=== PATIENT | female | born 1930 | race American Indian/Alaskan Native ===

== ENCOUNTER 2018-09-27 18:27 | Inpatient (IN) | payer MEDICARE ==
[2018-09-27 19:46] LABS: Bilirubin,Urine NEG (Negative); Blood,Urine NEG (Negative); Color,Urine Straw (Yellow); Protein,Urine <15 mg/dL mg/dL (Negative); RBC,Urine < 1.0 /HPF (0.0-6.0); Urobilinogen,Urine < 2.0 mg/dL (<2.0)
[2018-09-27 19:50] LABS: Basophils # (Auto) 0.1 K/mm3 (0.0-0.1); Basophils % (Auto) 0.6 % (0.0-1.8); Hematocrit 42.3 % (30.3-42.9); Hemoglobin 13.7 gm/dl (10.1-14.3); Lymphocytes # (Auto) 0.8 K/mm3 (1.2-5.4); Lymphocytes % (Auto) 7.9 % (13.4-35.0); Mean Corpuscular HGB Conc 32 % (30-34); Mean Corpuscular Volume 91 fl (79-97); Monocytes # (Auto) 0.3 K/mm3 (0.0-0.8); Monocytes % (Auto) 3.3 % (0.0-7.3); Platelet Count 297 K/mm3 (140-440); Red Blood Count 4.65 M/mm3 (3.65-5.03); Red Cell Distribution Width 14.6 % (13.2-15.2)
[2018-09-27] MEDS ORDERED: NACL 0.9% 1000 ML 1,000 ML IV ONE (19:54)
[2018-09-27 20:00] LABS: INR 0.95 (0.87-1.13); Partial Thromboplastin Time 24.1 Sec. (24.2-36.6)
[2018-09-27 20:04] LABS: Calcium 10.3 mg/dL (8.4-10.2)
[2018-09-27 20:08] LABS: Alanine Aminotransferase 10 units/L (7-56); Albumin 4.2 g/dL (3.9-5)
[2018-09-27 20:25] LABS: Bilirubin,Direct < 0.2 mg/dL (0-0.2)
--- NOTE | 2018-09-27 20:51 | Cat Scan Report ---
PROCEDURE: CT head without contrast. TECHNIQUE: Computerized tomography of the head was performed without contrast material. CT DOSE LENGTH PRODUCT: 930.3 mGycm HISTORY: Altered mental status. COMPARISONS: None. FINDINGS: The ventricles are normal in size. There is minimal evidence of chronic ischemic white matter disease . There are no mass lesions. There is no intracranial hemorrhage. The calvarium appears intact. The m astoid air cells and paranasal sinuses are well aerated as far as visualized. IMPRESSION: Normal study of the brain for age. This document is electronically signed by Alex Gamboa MD., September 27 2018 08:49:32 PM ET
--- NOTE | 2018-09-27 21:19 | XRay Report ---
PROCEDURE: XR CHEST 1V AP TECHNIQUE: Chest radiograph single view. HISTORY: ams COMPARISONS: None . FINDINGS: Heart: Normal. Mediastinum/Vessels: Normal. Lungs/Pleural space: Normal. Bony thorax: No acute osseous abnormality. Life support devices: None. IMPRESSION: No acute cardiopulmonary abnormality. This document is electronically signed by Onesimo Escobedo MD., September 27 2018 09:16:49 PM ET
--- NOTE | 2018-09-27 21:27 | Emergency Department Report ---
ED Altered Mental Status HPI - General Chief Complaint: Altered Mental Status Stated Complaint: EYE PAIN,HIGH SUGAR Time Seen by Provider: 09/27/18 19:03 Source: EMS Mode of arrival: Stretcher Limitations: Altered Mental Status - History of Present Illness Initial Comments: 88-year-old female presents to ED with complaint of right eye pain. Family stat es patient has been altered, not acting like herself. Daughter states patient had an appointment with new primary care physician on yesterday and was okay at that time. Patient was given a prescription for tramadol for her chronic knee and hip pain. The patient has had confusion that has been waxing and waning. Patient was altered with the nurse, unable to give accurate date of , current year, or reason for being in the hospital. However, with me, the patient reported right eye pain x 3 days, denies vision changes, is inaccurate date of , and knows that this is the year 2019 and that she is in the hospital for evaluation of her eye. Patient denies chest pain, abdominal pain, shortness of breath, vomiting. Accu-Chek read HIGH with EMS. MD Complaint: confusion -: This morning Severity: moderate Consistency of Symptoms: waxing and waning Context: diabetes Associated Symptoms: headaches. denies: chest pain, nausea/vomiting - Related Data Allergies Allergy/AdvReac Type Severity Reaction Status Date / Time codeine Allergy Unknown Verified 09/27/18 20:55 ibuprofen [From Motrin] Allergy Unknown Verified 09/27/18 20:55 ED Review of Systems ROS: Stated complaint: EYE PAIN,HIGH SUGAR Other details as noted in HPI Comment: All other systems reviewed and negative Eyes: eye pain. 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 Absent: respiratory distress - Cardiovascular Cardiovascular Exam: Present: regular rate, normal rhythm - GI/Abdominal GI/Abdominal exam: Present: soft. Absent: distended, tenderness - Extremities Exam Extremities exam: Present: normal inspection - Neurological Exam Neurological exam: Present: alert, altered, CN II-XII intact. Absent: motor sensory deficit - Psychiatric Psychiatric exam: Present: normal affect, normal mood - Skin Skin exam: Present: warm, dry, intact, normal color ED Course Vital Signs 09/27/18 18:48 Temperature 97.3 F L Pulse Rate 86 Respiratory 16 Rate Blood Pressure 162/71 O2 Sat by Pulse 98 Oximetry - Lab Data Result diagrams: 09/27/18 19:38 09/27/18 21:19 Lab Results 09/27/18 09/27/18 09/27/18 Range/Units 19:06 19:38 19:38 WBC 9.9 (4.5-11.0) K/mm3 RBC 4.65 (3.65-5.03) M/mm3 Hgb 13.7 (10.1-14.3) gm/dl Hct 42.3 (30.3-42.9) % MCV 91 (79-97) fl MCH 29 (28-32) pg MCHC 32 (30-34) % RDW 14.6 (13.2-15.2) % Plt Count 297 (140-440) K/mm3 Lymph % (Auto) 7.9 L (13.4-35.0) % [place] % (Auto) 3.3 (0.0-7.3) % Eos % (Auto) 0.0 (0.0-4.3) % Baso % (Auto) 0.6 (0.0-1.8) % Lymph # 0.8 L (1.2-5.4) K/mm3 [place] # 0.3 (0.0-0.8) K/mm3 Eos # 0.0 (0.0-0.4) K/mm3 Baso # 0.1 (0.0-0.1) K/mm3 Seg Neutrophils % 88.2 H (40.0-70.0) % Seg Neutrophils # 8.7 H (1.8-7.7) K/mm3 PT 13.3 (12.2-14.9) Sec. INR 0.95 (0.87-1.13) APTT 24.1 L (24.2-36.6) Sec. VBG pH (7.320-7.420) Sodium (137-145) mmol/L Potassium (3.6-5.0) mmol/L Chloride (98-107) mmol/L Carbon Dioxide (22-30) mmol/L Anion Gap mmol/L BUN (7-17) mg/dL Creatinine (0.7-1.2) mg/dL Estimated GFR ml/min BUN/Creatinine Ratio % Glucose (65-100) mg/dL POC Glucose > 500 H (70-105) Ketones Quantitative (Negative) Calcium (8.4-10.2) mg/dL Phosphorus (2.5-4.5) mg/dL Magnesium (1.7-2.3) mg/dL Total Bilirubin (0.1-1.2) mg/dL Direct Bilirubin (0-0.2) mg/dL Indirect Bilirubin mg/dL AST (5-40) units/L ALT (7-56) units/L Alkaline Phosphatase (35-129) units/L Total Protein (6.3-8.2) g/dL Albumin (3.9-5) g/dL Albumin/Globulin Ratio % 09/27/18 09/27/18 09/27/18 Range/Units 19:38 19:38 20:27 WBC (4.5-11.0) K/mm3 RBC (3.65-5.03) M/mm3 Hgb (10.1-14.3) gm/dl Hct (30.3-42.9) % MCV (79-97) fl MCH (28-32) pg MCHC (30-34) % RDW (13.2-15.2) % Plt Count (140-440) K/mm3 Lymph % (Auto) (13.4-35.0) % [place] % (Auto) (0.0-7.3) % Eos % (Auto) (0.0-4.3) % Baso % (Auto) (0.0-1.8) % Lymph # (1.2-5.4) K/mm3 [place] # (0.0-0.8) K/mm3 Eos # (0.0-0.4) K/mm3 Baso # (0.0-0.1) K/mm3 Seg Neutrophils % (40.0-70.0) % Seg Neutrophils # (1.8-7.7) K/mm3 PT (12.2-14.9) Sec. INR (0.87-1.13) APTT (24.2-36.6) Sec. VBG pH (7.320-7.420) Sodium 139 (137-145) mmol/L Potassium 4.7 (3.6-5.0) mmol/L Chloride 96.2 L (98-107) mmol/L Carbon Dioxide 20 L (22-30) mmol/L Anion Gap 28 mmol/L BUN 43 H (7-17) mg/dL Creatinine 1.6 H (0.7-1.2) mg/dL Estimated GFR 37 ml/min BUN/Creatinine Ratio 27 % Glucose 742 H* (65-100) mg/dL POC Glucose (70-105) Ketones Quantitative Small (Negative) Calcium 10.3 H (8.4-10.2) mg/dL Phosphorus (2.5-4.5) mg/dL Magnesium (1.7-2.3) mg/dL Total Bilirubin 0.70 (0.1-1.2) mg/dL Direct Bilirubin < 0.2 (0-0.2) mg/dL Indirect Bilirubin 0.5 mg/dL AST 13 (5-40) units/L ALT 10 (7-56) units/L Alkaline Phosphatase 79 (35-129) units/L Total Protein 7.6 (6.3-8.2) g/dL Albumin 4.2 (3.9-5) g/dL Albumin/Globulin Ratio 1.2 % 09/27/18 09/27/18 09/27/18 Range/Units 20:27 21:19 21:19 WBC (4.5-11.0) K/mm3 RBC (3.65-5.03) M/mm3 Hgb (10.1-14.3) gm/dl Hct (30.3-42.9) % MCV (79-97) fl MCH (28-32) pg MCHC (30-34) % RDW (13.2-15.2) % Plt Count (140-440) K/mm3 Lymph % (Auto) (13.4-35.0) % [place] % (Auto) (0.0-7.3) % Eos % (Auto) (0.0-4.3) % Baso % (Auto) (0.0-1.8) % Lymph # (1.2-5.4) K/mm3 [place] # (0.0-0.8) K/mm3 Eos # (0.0-0.4) K/mm3 Baso # (0.0-0.1) K/mm3 Seg Neutrophils % (40.0-70.0) % Seg Neutrophils # (1.8-7.7) K/mm3 PT (12.2-14.9) Sec. INR (0.87-1.13) APTT (24.2-36.6) Sec. VBG pH 7.323 (7.320-7.420) Sodium 141 (137-145) mmol/L Potassium 4.9 (3.6-5.0) mmol/L Chloride 98.2 (98-107) mmol/L Carbon Dioxide 20 L (22-30) mmol/L Anion Gap 28 mmol/L BUN 43 H (7-17) mg/dL Creatinine 1.7 H (0.7-1.2) mg/dL Estimated GFR 34 ml/min BUN/Creatinine Ratio 25 % Glucose (65-100) mg/dL POC Glucose (70-105) Ketones Quantitative (Negative) Calcium 10.2 (8.4-10.2) mg/dL Phosphorus 5.20 H (2.5-4.5) mg/dL Magnesium 2.30 (1.7-2.3) mg/dL Total Bilirubin (0.1-1.2) mg/dL Direct Bilirubin (0-0.2) mg/dL Indirect Bilirubin mg/dL AST (5-40) units/L ALT (7-56) units/L Alkaline Phosphatase (35-129) units/L Total Protein (6.3-8.2) g/dL Albumin (3.9-5) g/dL Albumin/Globulin Ratio % - EKG Data -: EKG Interpreted by Nh EKG shows normal: sinus rhythm, axis, intervals, QRS complexes Rate: normal Interpretation: no acute changes, other (inferolateral changes present) - Radiology Data Radiology results: report reviewed, image reviewed - Medical Decision Making 88-year-old female presents to ED with altered mental status. Patient appears to be in DKA, with glucose in the 700s, elevated anion gap of 28, and mildly decreased CO2 of 20. Insulin drip initiated. IV fluid boluses given as well. Patient appears to be dehydrated, with acute renal failure, BUN of 43, creatinine of 1.6. CT head negative for any acute abnormalities. No focal neuro deficit on exam. Chest x-ray and urine are both negative for any sign of infection. WBCs normal. Admit hospitalist, Dr Sauceda, for further management. - Differential Diagnosis UTI, hemorrhagic CVA, intracranial mass, electrolyte abnormality, DKA Critical Care Time: Yes Critical care time in (mins) excluding proc time.: 35 Critical care attestation.: If time is entered above; I have spent that time in minutes in the direct care of this critically ill patient, excluding procedure time. Critical Care Time: 35 minutes ED Disposition Clinical Impression: Diabetic ketoacidosis, Altered mental status, Acute renal failure Disposition: OP ADMIT IP TO THIS HOSP Is pt being admited?: Yes Condition: Stable Time of Disposition: 21:24
[2018-09-27] MEDS: HumuLIN R 100 UNITS in NACL 0.9% 99 ML IV SCH ×2 (21:56→23:14)
[2018-09-27 21:57] LABS: Calcium 10.2 mg/dL (8.4-10.2)
[2018-09-27] MEDS ORDERED: D50W (25GM) Syringe IV PRN (22:18)
[2018-09-27] MEDS ORDERED: ZOFRAN IV PRN (22:21)
[2018-09-27] MEDS ORDERED: TYLENOL PO PRN (22:22)
[2018-09-27] MEDS ORDERED: HumuLIN R 100 UNITS in NACL 0.9% 99 ML IV SCH (23:00)
[2018-09-27] MEDS ORDERED: APRESOLINE IV PRN (23:12)
[2018-09-27] MEDS: NACL 0.9% 1000 ML 1,000 ML IV SCH (23:24)
[2018-09-27] MEDS ORDERED: NACL 0.9% 1000 ML 1,000 ML IV SCH (23:45)
[2018-09-28 00:27] LABS: Calcium 10.1 mg/dL (8.4-10.2)
[2018-09-28 01:12] LABS: Calcium 9.9 mg/dL (8.4-10.2)
[2018-09-28] MEDS ORDERED: D50W (25GM) Syringe IV PRN (03:19)
[2018-09-28 04:28] LABS: Calcium 9.4 mg/dL (8.4-10.2)
--- NOTE | 2018-09-28 05:40 | History and Physical Report ---
CHIEF COMPLAINT: Altered mental status. Other complaint include pain in the right eye and elevated blood sugar. HISTORY OF PRESENT ILLNESS: The patient is an 88-year-old female, who initially was complaining about pain in the right eye going on for about 3 days and the patient went to a new primary care doctor who put her tramadol for pain and then also the doctor noticed that the patient was confused yesterday on 09/27/2018. There was no history of fever or chills. No history of nausea or vomiting and no history of chest pain or shortness of breath or cough was reported and because of the change in mental status, the patient was brought to the Emergency Room and was noted to have a very high blood sugar level. There is no history of dysuria. PAST MEDICAL HISTORY: Pertinent for hypertension, diabetes mellitus, DVT and high cholesterol. Also, the patient has past history of diabetes mellitus that is controlled with diet. PAST SURGICAL HISTORY: Pertinent for . FAMILY HISTORY: Noncontributory. SOCIAL HISTORY: The patient lives with family, does not smoke, does not drink alcohol and does not use illicit drugs. MEDICATIONS: The patient's home medication not known at this time. ALLERGIES: THE PATIENT IS ALLERGIC TO CODEINE AND IBUPROFEN. REVIEW OF SYSTEMS: CONSTITUTIONAL: There is no fever, no chills, no diaphoresis. HEENT: There is no headache or sore throat. CARDIOVASCULAR SYSTEM: There is no chest pain or orthopnea. RESPIRATORY SYSTEM: There is no shortness of breath or cough. GASTROINTESTINAL SYSTEM: There is no nausea, no vomiting, no abdominal pain, diarrhea or constipation. NEUROLOGICAL SYSTEM: Change in mental status noted. No dizziness or numbness. MUSCULOSKELETAL SYSTEM: There is no joint pain or swelling. DERMATOLOGICAL SYSTEM: There is no skin rash or itching. GENITOURINARY SYSTEM: There is no dysuria, hematuria or flank pain. Rest of system review is normal. PHYSICAL EXAMINATION: GENERAL: At the time of exam, the patient was found to be lethargic, but easily arousable, and not in acute distress. VITAL SIGNS: Initial vital signs shows temperature of 97.3 degrees Fahrenheit, pulse of 86, respirations 18, blood pressure 162/71, O2 sat of 98% on room air. HEENT: Showed eyeballs to be a little sunken with pupils round, reactive to light and accommodating. Extraocular muscles are intact. NECK: Supple with no JVD or carotid bruit. CARDIOVASCULAR SYSTEM: Showed normal first and second heart sounds with no gallops or murmurs. RESPIRATORY SYSTEM: Show good air entry on both sides of the lungs with no abnormal breath sounds. GASTROINTESTINAL SYSTEM: Show abdomen to be full, soft, nontender with no organomegaly or rigidity. NEUROLOGIC: Shows no focal deficit. MUSCULOSKELETAL SYSTEM: Show no joint swelling or tenderness. DERMATOLOGICAL SYSTEM: Showing dryness of the skin with no rashes seen. GENITOURINARY SYSTEM: Show no costovertebral angle tenderness. PERTINENT LABORATORY AND IMAGING STUDIES: The patient has CT of the head without contrast done that shows normal study of the brain for age. The patient also had chest x-ray done that shows no acute cardiopulmonary lesion. Lab results, the patient's CBC showed normal white count, normal hemoglobin and normal hematocrit with CBC differential showing elevated segmented neutrophil count of 88.2%. The patient's coagulation studies were unremarkable. The patient's chemistry show normal sodium, normal potassium with low chloride of 96.2, elevated BUN of 43 with elevated creatinine of 1.6 and critically high blood glucose of 742. The patient's anion gap is 23 and rest of chemistry was unremarkable except for slight increase in calcium level of 10.3. The patient's urinalysis show straw clear colored urine with elevated urine ketones level and high urine glucose of greater than 500. Negative urine nitrite as well as negative urine leukocyte esterase and no bacteria and normal urine wbc's was seen. DIAGNOSES: 1. Diabetic ketoacidosis. 2. Altered mental status. PLAN OF CARE: 1. The patient will be admitted as inpatient to Critical Care Unit using DKA protocol. 2. The patient will be on IV normal saline running at about 150 mL an hour. Also, the patient will continue IV insulin drip per DKA protocol and the fluid will be changed from normal saline to D5 half normal saline with potassium replacement of 20 mEq in 1 liter and this will be done when blood sugar is less than 250 mg/dL. 3. The patient will remain n.p.o. and will have critical care consult with Dr. Anton because of ICU admission requiring insulin drip. 4. The patient will be on IV hydralazine 10 mg every 4 hours as needed for elevated blood pressure of 160/90 or more. 5. The patient will be on IV Zofran 4 mg every 8 hours as needed for nausea and vomiting and will be on Tylenol 650 mg by mouth every 4 hours for fever and headache. JOB# [id number] OCN/NTS
[2018-09-28] MEDS ORDERED: HumaLOG SUB-Q SCH (06:00)
[2018-09-28] MEDS: NACL 0.9% 1000 ML 1,000 ML IV SCH (06:59)
--- NOTE | 2018-09-28 09:09 | Progress Note ---
Assessment and Plan Assessment and plan: Per Ed Documentation 88-year-old female presents to ED with complaint of right eye pain. Family states patient has been altered, not acting like herself. Daughter states patient had an appointment with new primary care physician on yesterday and was okay at that time. Patient was given a prescription for tramadol for her chronic knee and hip pain. The patient has had confusion that has been waxing and waning. Patient was altered with the nurse, unable to give accurate date of , current year, or reason for being in the hospital. However, with me, the patient reported right eye pain x 3 days, denies vision changes, is inaccurate date of , and knows that this is the year 2019 and that she is in the hospital for evaluation of her eye. Patient denies chest pain, abdominal pain, shortness of breath, vomiting. Accu-Chek read HIGH with EMS. Patient was treated with insulin protocol and improved. Her right eye has improved. CT Head with out contrast:Normal study of the brain for age. CXR: No acute cardiopulmonary disease noted Hyperosomolar Non ketotic hyperglycemic state Uncontrolled DM Acute Encephalopathy ?underlying Dementia exacerbated with Delirium due to High blood sugar Right Eye pain DVT per hx HTN Hyperlipidemia Hypenatremia Hypercalcemia- Resolved Plan Continue supportive care Transfer to [facility] unit Continue to monitor renal function. Unknown baseline at this time. Nephrology consult pending Adjust insulin Obtain and restart home medication Will need outpatient dementia work up. Discussed with family need for [facility] [employer] Eval Outpatient Check hemoglobin A1c Anticipated discharge in a.m. if patient continues to improve History Interval history: Patient seen and examined today, mental status has improved. Per family patient was not on any diabetic medication and was being managed by diet. No new complaints. Hospitalist Physical - Physical exam Narrative exam: VITAL SIGNS: Reviewed. GENERAL: The patient appeared well nourished and normally developed, Vital signs as documented. HEAD: No signs of head trauma. EYES: Pupils are equal. Extraocular motions intact. EARS: Hearing grossly intact. MOUTH: Oropharynx is normal. Noted missing dentition NECK: No adenopathy, no JVD. CHEST: Chest with clear breath sounds bilaterally. No wheezes, rales, or rhonchi. CARDIAC: Regular rate and rhythm. S1 and S2, without murmurs, gallops, or rubs. VASCULAR: No Edema. Peripheral pulses normal and equal in all extremities. ABDOMEN: Soft, non tender and non distended. No rebound or guarding, and no masses palpated. Bowel Sounds normal. MUSCULOSKELETAL: Good range of motion of all major joints. Extremities without clubbing, cyanosis or edema. NEUROLOGIC EXAM: Alert and oriented x 3 No focal sensory or strength deficits. Speech normal. Follows commands. PSYCHIATRIC: Mood normal. SKIN: No rash or lesions. - Constitutional Vitals: Temp Pulse Resp BP Pulse Ox 98.9 F 89 20 165/77 93 09/28/18 08:00 09/28/18 00:45 09/28/18 00:45 09/28/18 00:45 09/28/18 00:45 Results - Labs CBC & Chem 7: 09/27/18 19:38 09/28/18 04:01 Labs: Laboratory Last Values WBC 9.9 K/mm3 (4.5-11.0) 09/27/18 19:38 RBC 4.65 M/mm3 (3.65-5.03) 09/27/18 19:38 Hgb 13.7 gm/dl (10.1-14.3) 09/27/18 19:38 Hct 42.3 % (30.3-42.9) 09/27/18 19:38 MCV 91 fl (79-97) 09/27/18 19:38 MCH 29 pg (28-32) 09/27/18 19:38 MCHC 32 % (30-34) 09/27/18 19:38 RDW 14.6 % (13.2-15.2) 09/27/18 19:38 Plt Count 297 K/mm3 (140-440) 09/27/18 19:38 Lymph % (Auto) 7.9 % (13.4-35.0) L 09/27/18 19:38 [place] % (Auto) 3.3 % (0.0-7.3) 09/27/18 19:38 Eos % (Auto) 0.0 % (0.0-4.3) 09/27/18 19:38 Baso % (Auto) 0.6 % (0.0-1.8) 09/27/18 19:38 Lymph # 0.8 K/mm3 (1.2-5.4) L 09/27/18 19:38 [place] # 0.3 K/mm3 (0.0-0.8) 09/27/18 19:38 Eos # 0.0 K/mm3 (0.0-0.4) 09/27/18 19:38 Baso # 0.1 K/mm3 (0.0-0.1) 09/27/18 19:38 Seg Neutrophils % 88.2 % (40.0-70.0) H 09/27/18 19:38 Seg Neutrophils # 8.7 K/mm3 (1.8-7.7) H 09/27/18 19:38 PT 13.3 Sec. (12.2-14.9) 09/27/18 19:38 INR 0.95 (0.87-1.13) 09/27/18 19:38 APTT 24.1 Sec. (24.2-36.6) L 09/27/18 19:38 VBG pH 7.323 (7.320-7.420) 09/27/18 20:27 Sodium 149 mmol/L (137-145) H 09/28/18 04:01 Potassium 3.8 mmol/L (3.6-5.0) 09/28/18 04:01 Chloride 112.0 mmol/L (98-107) H 09/28/18 04:01 Carbon Dioxide 23 mmol/L (22-30) 09/28/18 04:01 Anion Gap 18 mmol/L 09/28/18 04:01 BUN 41 mg/dL (7-17) H 09/28/18 04:01 Creatinine 1.5 mg/dL (0.7-1.2) H 09/28/18 04:01 Estimated GFR 40 ml/min 09/28/18 04:01 BUN/Creatinine Ratio 27 % 09/28/18 04:01 Glucose 179 mg/dL (65-100) H 09/28/18 04:01 POC Glucose 213 (70-105) H 09/28/18 05:22 Ketones Quantitative Small (Negative) 09/27/18 20:27 Calcium 9.4 mg/dL (8.4-10.2) 09/28/18 04:01 Phosphorus 4.60 mg/dL (2.5-4.5) H 09/27/18 22:59 Magnesium 2.30 mg/dL (1.7-2.3) 09/27/18 22:59 Total Bilirubin 0.70 mg/dL (0.1-1.2) 09/27/18 19:38 Direct Bilirubin < 0.2 mg/dL (0-0.2) 09/27/18 19:38 Indirect Bilirubin 0.5 mg/dL 09/27/18 19:38 AST 13 units/L (5-40) 09/27/18 19:38 ALT 10 units/L (7-56) 09/27/18 19:38 Alkaline Phosphatase 79 units/L (35-129) 09/27/18 19:38 Total Protein 7.6 g/dL (6.3-8.2) 09/27/18 19:38 Albumin 4.2 g/dL (3.9-5) 09/27/18 19:38 Albumin/Globulin Ratio 1.2 % 09/27/18 19:38 Urine Color Straw (Yellow) 09/27/18 Unknown Urine Turbidity Clear (Clear) 09/27/18 Unknown Urine pH 5.0 (5.0-7.0) 09/27/18 Unknown Ur Specific [place] 1.026 (1.003-1.030) 09/27/18 Unknown Urine Protein <15 mg/dl mg/dL (Negative) 09/27/18 Unknown Urine Glucose (UA) >=500 mg/dL (Negative) 09/27/18 Unknown Urine Ketones 20 mg/dL (Negative) 09/27/18 Unknown Urine Blood Neg (Negative) 09/27/18 Unknown Urine Nitrite Neg (Negative) 09/27/18 Unknown Urine Bilirubin Neg (Negative) 09/27/18 Unknown Urine Urobilinogen < 2.0 mg/dL (<2.0) 09/27/18 Unknown Ur Leukocyte Esterase Neg (Negative) 09/27/18 Unknown Urine WBC (Auto) 1.0 /HPF (0.0-6.0) 09/27/18 Unknown Urine RBC (Auto) < 1.0 /HPF (0.0-6.0) 09/27/18 Unknown Active Medications - Current Medications Current Medications: Generic Name Dose Route Start Last Admin Trade Name Freq PRN Reason Stop Dose Admin Acetaminophen 650 mg 09/27/18 22:22 Tylenol PO Q4H PRN Fever >101 Dextrose 50 ml 09/28/18 03:19 D50w (25gm) Syringe IV PRN PRN Hypoglycemia Hydralazine HCl 10 mg 09/27/18 23:12 Apresoline IV Q4HR PRN Hypertension Sodium Chloride 1,000 mls @ 125 mls/hr 09/27/18 23:45 Nacl 0.9% 1000 Ml IV DIRECT MONIKA Insulin Human Lispro 0 unit 09/28/18 06:00 09/28/18 05:41 Humalog SUB-Q 3 unit Q4HR MONIKA Administration Protocol Ondansetron HCl 4 mg 09/27/18 22:21 Zofran IV Q8H PRN Nausea And Vomiting
[2018-09-28] MEDS: HumaLOG SUB-Q SCH ×3 (10:47→22:41)
[2018-09-28] MEDS: LOVENOX SUB-Q SCH (10:56)
[2018-09-28] MEDS ORDERED: LOVENOX SUB-Q SCH (11:00)
--- NOTE | 2018-09-28 11:19 | Consultation ---
History of Present Illness Consult date: 09/28/18 Requesting physician: JAREN BURKETT Reason for consult: other (Acute metabolic encephaloapthy, Hyperglycemic hyperosmolar state) History of present illness: 88-year-old female presents to ED with complaint of right eye pain. Family states patient has been altered, not acting like herself. Daughter states patient had an appointment with new primary care physician on yesterday and was okay at that time. Patient was given a prescription for tramadol for her chronic knee and hip pain. The patient has had confusion that has been waxing and waning. Patient was altered with the nurse, unable to give accurate date of , current year, or reason for being in the hospital. However, with me, the patient reported right eye pain x 3 days, denies vision changes, is inaccurate date of , and knows that this is the year 2019 and that she is in the hospital for evaluation of her eye. Patient denies chest pain, abdominal pain, shortness of breath, vomiting. Accu-Chek read HIGH with EMS. She was admitted to the ICU for management of hyperglycemic-hyperosmolar state. I have been consulted for critical care management. She was on an insulin infusion Patient was seen and examined. Vitals, labs, medications, chart and imaging reviewed. Her daughter is at the bedside. She denies any chest pain, no shortness of breath. "I feel good." ROS: Stated complaint: EYE PAIN,HIGH SUGAR Other details as noted in HPI Comment: All other systems reviewed and negative Eyes: eye pain. denies: vision change Respiratory: denies: shortness of breath Cardiovascular: denies: chest pain Gastrointestinal: denies: abdominal pain, nausea, vomiting Neurological: headache - Past Medical History Previous Medical History?: Yes Hx Hypertension: Yes Hx Diabetes: Yes (Diet controlled) Additional medical history: DVT takes blood thinners - Surgical History Past Surgical History?: Yes Additional Surgical History: C section - Social History Smoking Status: Never smoked Medications and Allergies Allergies Allergy/AdvReac Type Severity Reaction Status Date / Time codeine Allergy Unknown Verified 09/27/18 20:55 ibuprofen [From Motrin] Allergy Unknown Verified 09/27/18 20:55 Home Medications Medication Instructions Recorded Confirmed Last Taken Type Amlodipine Besylate 2.5 mg PO DAILY 09/28/18 09/28/18 09/27/18 History Atorvastatin Calcium 40 mg PO DAILY 09/28/18 09/28/18 09/27/18 History Famotidine 20 mg PO HS 09/28/18 09/28/18 09/26/18 History Hydralazine HCl 50 mg PO BID 09/28/18 09/28/18 09/27/18 History Hydrochlorothiazide 12.5 mg PO DAILY 09/28/18 09/28/18 09/27/18 History Inderal 80 mg PO DAILY 09/28/18 09/28/18 09/27/18 History Losartan 25 mg PO DAILY 09/28/18 09/28/18 09/27/18 History traMADol 50 mg PO BID PRN 09/28/18 09/28/18 09/27/18 History Active Meds: Active Medications Acetaminophen (Tylenol) 650 mg PO Q4H PRN PRN Reason: Fever >101 Dextrose (D50w (25gm) Syringe) 50 ml IV PRN PRN PRN Reason: Hypoglycemia Enoxaparin Sodium (Lovenox) 30 mg SUB-Q QDAY ON LICENSE OF [facility] Last Admin: 09/28/18 10:56 Dose: 30 mg Documented by: Hydralazine HCl (Apresoline) 10 mg IV Q4HR PRN PRN Reason: Hypertension Insulin Glargine (Lantus) 5 units SUB-Q QDDIAB ON LICENSE OF [facility] Insulin Human Lispro (Humalog) 0 unit SUB-Q [facility] ON LICENSE OF [facility]; Protocol Last Admin: 09/28/18 10:47 Dose: 6 unit Documented by: Ondansetron HCl (Zofran) 4 mg IV Q8H PRN PRN Reason: Nausea And Vomiting Physical Examination Vital signs: Vital Signs Temp Pulse Resp BP Pulse Ox 97.3 F L 86 16 162/71 98 09/27/18 18:48 09/27/18 18:48 09/27/18 18:48 09/27/18 18:48 09/27/18 18:48 General appearance: no acute distress, alert Eyes: non-icteric ENT: oropharynx moist, other (edentulous) Neck: supple, no lymphadenopathy, no JVD Effort: normal Ascultation: Bilateral: clear Cardiovascular: regular rate and rhythm, other (S1,S2) Gastrointestinal: normoactive bowel sounds, soft, non-tender, non-distended Integumentary: normal Extremities: no cyanosis, no edema, pulses normal, no ischemia or petechiae Musculoskeletal: no deformities normal mental status, non-focal exam, pupils equal and round, motor strength normal and mood appropriate, affect normal Results - Laboratory Findings CBC and BMP: 09/27/18 19:38 09/28/18 04:01 PT/INR, D-dimer PT 13.3 Sec. (12.2-14.9) 09/27/18 19:38 INR 0.95 (0.87-1.13) 09/27/18 19:38 Abnormal lab findings: Abnormal Labs 09/27/18 09/27/18 09/27/18 19:06 19:38 19:38 Lymph % (Auto) 7.9 L Lymph # 0.8 L Seg Neutrophils % 88.2 H Seg Neutrophils # 8.7 H APTT 24.1 L Sodium Chloride Carbon Dioxide BUN Creatinine Glucose POC Glucose > 500 H Calcium Phosphorus 09/27/18 09/27/18 09/27/18 19:38 21:19 21:19 Lymph % (Auto) Lymph # Seg Neutrophils % Seg Neutrophils # APTT Sodium Chloride 96.2 L Carbon Dioxide 20 L 20 L BUN 43 H 43 H Creatinine 1.6 H 1.7 H Glucose 742 H* 694 H* POC Glucose Calcium 10.3 H Phosphorus 5.20 H 09/27/18 09/27/18 09/27/18 21:51 22:59 22:59 Lymph % (Auto) Lymph # Seg Neutrophils % Seg Neutrophils # APTT Sodium Chloride Carbon Dioxide 16 L BUN 42 H Creatinine 1.6 H Glucose 666 H* POC Glucose > 500 H Calcium Phosphorus 4.60 H 09/28/18 09/28/18 09/28/18 00:01 00:35 01:18 Lymph % (Auto) Lymph # Seg Neutrophils % Seg Neutrophils # APTT Sodium 146 H Chloride Carbon Dioxide 20 L BUN 41 H Creatinine 1.8 H Glucose 470 H POC Glucose > 500 H 357 H Calcium Phosphorus 09/28/18 09/28/18 09/28/18 02:11 02:20 03:07 Lymph % (Auto) Lymph # Seg Neutrophils % Seg Neutrophils # APTT Sodium Chloride Carbon Dioxide BUN Creatinine Glucose POC Glucose 365 H 298 H 202 H Calcium Phosphorus 09/28/18 09/28/18 09/28/18 04:01 05:22 10:34 Lymph % (Auto) Lymph # Seg Neutrophils % Seg Neutrophils # APTT Sodium 149 H Chloride 112.0 H Carbon Dioxide BUN 41 H Creatinine 1.5 H Glucose 179 H POC Glucose 213 H 286 H Calcium Phosphorus - Diagnostic Findings Chest x-ray: image reviewed Assessment and Plan Hyperosomolar hyperglycemic state Uncontrolled DM Acute Encephalopathy (metabolic) Right Eye pain, resolved DVT per hx HTN Hyperlipidemia Hypernatremia Hypercalcemia- Resolved Plan -Start low dose long acting insulin -Basal bolus insulin therapy -Resume chronic home medications -Monitor renal function, avoid nephrotoxics, adjust all medications for creatinine clearance -PT/OT to evaluate and treat -Falls precautions -Continue supportive care -OK to transfer to [facility] unit Discussed in ICU-IDT rounds Updated family at the bedside
[2018-09-28] MEDS: LANTUS SUB-Q SCH (11:59)
[2018-09-28] MEDS: NACL 0.45% 1000 ML 1,000 ML IV SCH (13:42)
--- NOTE | 2018-09-28 15:00 | Consultation ---
History of Present Illness - Reason for Consult acute renal failure - History of Present Illness The patient is an 88 YO female with history significant for DM type 2, HTN, CKD and HLD who presented to [facility] ED for evaluation of AMS. Julioragini is poor historian and the family members at the bedside was not able a good history. Per family patient has been altered, not acting like herself. The patient has had confusion that has been waxing and waning. Patient denies chest pain, N,V, D, abdominal pain, shortness of breath, fever or chills. Initial assessment showed blood sugar 742, creatinine 1.6 and positive ketones in the urine. Patient was admitted for treatment of DKA. Nephrology was consulted for further evaluation. Past History Past Medical History: diabetes, hypertension, hyperlipidemia, renal failure Medications and Allergies Allergies Allergy/AdvReac Type Severity Reaction Status Date / Time codeine Allergy Unknown Verified 09/27/18 20:55 ibuprofen [From Motrin] Allergy Unknown Verified 09/27/18 20:55 Home Medications Medication Instructions Recorded Confirmed Last Taken Type Amlodipine Besylate 2.5 mg PO DAILY 09/28/18 09/28/18 09/27/18 History Atorvastatin Calcium 40 mg PO DAILY 09/28/18 09/28/18 09/27/18 History Famotidine 20 mg PO HS 09/28/18 09/28/18 09/26/18 History Hydralazine HCl 50 mg PO BID 09/28/18 09/28/18 09/27/18 History Hydrochlorothiazide 12.5 mg PO DAILY 09/28/18 09/28/18 09/27/18 History Inderal 80 mg PO DAILY 09/28/18 09/28/18 09/27/18 History Losartan 25 mg PO DAILY 09/28/18 09/28/18 09/27/18 History traMADol 50 mg PO BID PRN 09/28/18 09/28/18 09/27/18 History Active Meds: Active Medications Acetaminophen (Tylenol) 650 mg PO Q4H PRN PRN Reason: Fever >101 Dextrose (D50w (25gm) Syringe) 50 ml IV PRN PRN PRN Reason: Hypoglycemia Enoxaparin Sodium (Lovenox) 30 mg SUB-Q QDAY MONIKA Last Admin: 09/28/18 10:56 Dose: 30 mg Documented by: Hydralazine HCl (Apresoline) 10 mg IV Q4HR PRN PRN Reason: Hypertension Sodium Chloride (Nacl 0.45% 1000 Ml) 1,000 mls @ 75 mls/hr IV DIRECT FOR[facility]LY [facility], [facility]1983 Last Admin: 09/28/18 13:42 Dose: 75 mls/hr Documented by: Insulin Glargine (Lantus) 5 units SUB-Q QDDIAB [facility] Last Admin: 09/28/18 11:59 Dose: 5 units Documented by: Insulin Human Lispro (Humalog) 0 unit SUB-Q ACHS FORMERLY [facility], [facility]; Protocol Last Admin: 09/28/18 10:47 Dose: 6 unit Documented by: Ondansetron HCl (Zofran) 4 mg IV Q8H PRN PRN Reason: Nausea And Vomiting Review of Systems ROS unobtainable: due to mental status (Please see HPI.) Exam - Vital Signs Vital signs: Vital Signs Temp Pulse Resp BP Pulse Ox 97.3 F L 86 16 162/71 98 09/27/18 18:48 09/27/18 18:48 09/27/18 18:48 09/27/18 18:48 09/27/18 18:48 - General Appearance General appearance: well-developed, well-nourished, appears stated age, other (not in distress) EENT: ATNC, PERRL, mucous membranes dry Neck: Present: neck supple, trachea midline Respiratory: Clear to Ascultation Heart: regular, S1S2, no murmurs Gastrointestinal: Present: normoactive bowel sounds. Absent: tenderness, distended Integumentary: no rash, warm and dry Neurologic: no focal deficit, no asterixis, other (Oriented to self, place and family members) Musculoskeletal: Present: other (no edema) Psychiatric: cooperative Results - Lab Results 09/27/18 19:38 09/28/18 04:01 Most recent lab results Calcium 9.4 mg/dL (8.4-10.2) 09/28/18 04:01 Phosphorus 4.60 mg/dL (2.5-4.5) H 09/27/18 22:59 Magnesium 2.30 mg/dL (1.7-2.3) 09/27/18 22:59 - Image Kidney/bladder ultrasound: pending Assessment and Plan 1. Acute kidney injury: Likely vasomotor TANJA superimposed on CKD in the setting of DKA and volume depletion. Creatinine level is fairly stable. Baseline CKD. Urine studies and Renal US. Continue IV fluids. Montior renal function. Avoid nephrotoxic agents. Meds dosage based on GFR. 2. FEN: Volume depletion, continue IV fluids. Hypernatremia, change IV fluids to 1/2 NS. Monitor lytes. 3. DKA: Improving. 4. HTN.
[2018-09-28] MEDS ORDERED: NON-FORMULARY (Tramadol 50 MG) PO PRN (15:18)
[2018-09-28] MEDS ORDERED: ULTRAM PO PRN (17:19)
[2018-09-28 20:35] LABS: Creatinine,Urine 115.3 mg/dL (0.1-20.0)
[2018-09-28] MEDS ORDERED: HYDRALAZINE HCL 50 MG PO SCH (22:00)
[2018-09-28] MEDS ORDERED: PEPCID PO SCH (22:00)
[2018-09-28] MEDS ORDERED: NON-FORMULARY (Famotidine 20 MG) PO SCH (22:00)
[2018-09-28] MEDS: APRESOLINE PO SCH (22:37)
[2018-09-29] MEDS: LANTUS SUB-Q SCH (07:27)
[2018-09-29] MEDS: HumaLOG SUB-Q SCH ×4 (07:29→11:43)
[2018-09-29] MEDS: NACL 0.45% 1000 ML 1,000 ML IV SCH (07:32)
[2018-09-29 08:07] LABS: Hematocrit 33.5 % (30.3-42.9); Mean Corpuscular HGB Conc 33 % (30-34); Mean Corpuscular Volume 90 fl (79-97); Platelet Count 227 K/mm3 (140-440); Red Blood Count 3.72 M/mm3 (3.65-5.03); Red Cell Distribution Width 14.2 % (13.2-15.2)
[2018-09-29 08:11] VITALS: BP 138/47
[2018-09-29 08:40] LABS: Albumin 2.9 g/dL (3.9-5)
[2018-09-29] MEDS: APRESOLINE PO SCH (09:15)
[2018-09-29] MEDS: LOVENOX SUB-Q SCH (09:20)
--- NOTE | 2018-09-29 09:31 | Progress Note ---
Assessment and Plan 1. Acute kidney injury: Likely vasomotor TANJA superimposed on CKD in the setting of DKA and volume depletion. Renal US results pending. Renal function is better. Montior renal function. Avoid nephrotoxic agents. Meds dosage based on GFR. 2. FEN: Volume depletion, improved. Hypernatremia, improved. Monitor lytes. 3. DKA: Improved. 4. HTN. F/u with me in 2 weeks. Also d/w her daughter at the bedside. Subjective Date of service: 09/29/18 Interval history: Patient is feeling better. Objective - Vital Signs Vital signs: Vital Signs - 12hr 09/28/18 09/28/18 09/29/18 22:00 22:37 03:16 Temperature 98.3 F Pulse Rate 92 H 92 H 79 Respiratory 18 Rate Respiratory 18 Rate [Left Thigh] Blood Pressure 170/70 115/53 O2 Sat by Pulse 97 Oximetry 09/29/18 07:26 Temperature 98.0 F Pulse Rate 81 Respiratory 20 Rate Respiratory Rate [Left Thigh] Blood Pressure 138/47 O2 Sat by Pulse 97 Oximetry - General Appearance General appearance: well-developed, well-nourished, appears stated age, other (not in distress) EENT: ATNC, PERRL, mucous membranes moist, hearing intact, vision intact Neck: supple Respiratory: Present: Clear to Ascultation Cardiology: regular, S1S2, no murmurs Gastrointestinal: normoactive bowel sounds, no tenderness, no distended Integumentary: no rash, warm and dry Neurologic: no focal deficit, no asterixis, alert and oriented x3 Musculoskeletal: other (no edema) Psychiatric: cooperative - Lab 09/29/18 07:47 09/29/18 07:47 Most recent lab results Calcium 8.0 mg/dL (8.4-10.2) L 09/29/18 07:47 Phosphorus 4.60 mg/dL (2.5-4.5) H 09/27/18 22:59 Magnesium 2.30 mg/dL (1.7-2.3) 09/27/18 22:59 Urine Creatinine 115.3 mg/dL (0.1-20.0) H 09/28/18 20:05 Urine Sodium 51 mmol/L 09/28/18 20:05 Medications & Allergies - Medications Allergies/Adverse Reactions: Allergies codeine Allergy (Verified 09/27/18 20:55) Unknown ibuprofen [From Motrin] Allergy (Verified 09/27/18 20:55) Unknown Home Medications: Home Medications Medication Instructions Recorded Confirmed Last Taken Type Amlodipine Besylate 2.5 mg PO DAILY 09/28/18 09/28/18 09/27/18 History Atorvastatin Calcium 40 mg PO DAILY 09/28/18 09/28/18 09/27/18 History Famotidine 20 mg PO HS 09/28/18 09/28/18 09/26/18 History Hydralazine HCl 50 mg PO BID 09/28/18 09/28/18 09/27/18 History Hydrochlorothiazide 12.5 mg PO DAILY 09/28/18 09/28/18 09/27/18 History Inderal 80 mg PO DAILY 09/28/18 09/28/18 09/27/18 History Losartan 25 mg PO DAILY 09/28/18 09/28/18 09/27/18 History traMADol 50 mg PO BID PRN 09/28/18 09/28/18 09/27/18 History Insulin Glargine,Hum.rec.anlog 100 unit SQ QHS #20 vial 09/29/18 Unknown Rx [Lantus] Insulin Lispro [HumaLOG VIAL] 0 units SQ AC #1 vial 09/29/18 Unknown Rx Active Medications: Generic Name Dose Route Start Last Admin Trade Name Freq PRN Reason Stop Dose Admin Acetaminophen 650 mg 09/27/18 22:22 Tylenol PO Q4H PRN Fever >101 Amlodipine Besylate 2.5 mg 09/29/18 10:00 09/29/18 09:19 Norvasc PO 2.5 mg QDAY MONIKA Administration Atorvastatin Calcium 40 mg 09/29/18 10:00 09/29/18 09:19 Lipitor PO 40 mg QDAY MONIKA Administration Dextrose 50 ml 09/28/18 03:19 D50w (25gm) Syringe IV PRN PRN Hypoglycemia Enoxaparin Sodium 30 mg 09/28/18 11:00 09/29/18 09:20 Lovenox SUB-Q 30 mg QDAY MONIKA Administration Famotidine 20 mg 09/28/18 22:00 09/28/18 22:38 Pepcid PO 20 mg QHS MONIKA Administration Hydralazine HCl 10 mg 09/27/18 23:12 Apresoline IV Q4HR PRN Hypertension Hydralazine HCl 50 mg 09/28/18 22:00 09/29/18 09:15 Apresoline PO Not Given BID MONIKA Hydrochlorothiazide 12.5 mg 09/29/18 10:00 09/29/18 09:18 Hctz PO 12.5 mg QDAY MONIKA Administration Sodium Chloride 1,000 mls @ 75 mls/hr 09/28/18 13:00 09/29/18 07:32 Nacl 0.45% 1000 Ml IV 75 mls/hr DIRECT MONIKA Administration Insulin Human Isoph/Insulin Regular 12 unit 09/29/18 10:00 09/29/18 09:21 Humulin 70/30 SUB-Q 09/29/18 10:01 12 unit ONCE ONE Administration Insulin Human Isoph/Insulin Regular 20 unit 09/29/18 17:00 Humulin 70/30 SUB-Q BIDDIAB MONIKA Insulin Human Lispro 0 unit 09/28/18 11:30 09/29/18 07:29 Humalog SUB-Q 8 unit ACHS MONIKA Administration Protocol Losartan Potassium 25 mg 09/29/18 10:00 09/29/18 09:19 Cozaar PO 25 mg QDAY MONIKA Administration Ondansetron HCl 4 mg 09/27/18 22:21 Zofran IV Q8H PRN Nausea And Vomiting Propranolol HCl 80 mg 09/29/18 10:00 09/29/18 09:20 Inderal La PO 80 mg QDAY MONIKA Administration Tramadol HCl 50 mg 09/28/18 17:19 Ultram PO BID PRN Pain, Moderate (4-6)
--- NOTE | 2018-09-29 09:49 | Discharge Summary ---
Providers - Providers Date of Admission: 09/27/18 21:32 Attending physician: JAREN BURKETT MD 09/27/18 22:35 Consult to Physician [CONS] Routine Comment: Consulting Provider: DOREEN FRANKS Physician Instructions: Reason For Exam: ICU ADMISSION NEEDING INSULIN DRIP 09/28/18 03:28 Consult to Dietitian/Nutrition [CONS] Routine Physician Instructions: Reason For Exam: Reason for Consult: Diet education 09/28/18 05:51 Consult to Physician [CONS] Routine Comment: Consulting Provider: DEBBIE DOHERTY Physician Instructions: Reason For Exam: TANJA 09/28/18 09:30 Occupational Therapy Evaluate and Treat [CONS] Routine Comment: Reason For Exam: debility Physical Therapy Evaluation and Treat [CONS] Routine Comment: Reason For Exam: debility Primary care physician: REEMA BOUCHER Hospitalization Reason for admission: ams Condition: Stable Hospital course: 88-year-old female presents to ED with complaint of right eye pain. Family states patient has been altered, not acting like herself. Daughter states patient had an appointment with new primary care physician on yesterday and was okay at that time. Patient was given a prescription for tramadol for her chronic knee and hip pain. The patient has had confusion that has been waxing and waning. Patient was altered with the nurse, unable to give accurate date of , current year, or reason for being in the hospital. However, with me, the patient reported right eye pain x 3 days, denies vision changes, is inaccurate date of , and knows that this is the year 2019 and that she is in the hospital for evaluation of her eye. Patient denies chest pain, abdominal pain, shortness of breath, vomiting. Accu-Chek read HIGH with EMS. Patient was treated with insulin protocol and improved. Her right eye has improved. A1c Returned greater than 12. Patient and family were educated on DM and management with lantus and to keep a diary of the blood sugar. the patient is much improved this am and ready for discharge. Renal function improved CT Head with out contrast:Normal study of the brain for age. CXR: No acute cardiopulmonary disease noted Hyperosomolar Non ketotic hyperglycemic state Uncontrolled DM Acute Encephalopathy secondary to uncontrolled DM Right Eye pain DVT per hx HTN Hyperlipidemia Hypenatremia Hypercalcemia- Resolved Disposition: TO HOME OR SELFCARE Time spent for discharge: 35 mins Core Measure Documentation - Palliative Care Palliative Care/ Comfort Measures: Not Applicable - Core Measures Any of the following diagnoses?: none Exam - Physical Exam Narrative exam: VITAL SIGNS: Reviewed. GENERAL: The patient appeared well nourished and normally developed, Vital signs as documented. HEAD: No signs of head trauma. EYES: Pupils are equal. Extraocular motions intact. EARS: Hearing grossly intact. MOUTH: Oropharynx is normal. Noted missing dentition NECK: No adenopathy, no JVD. CHEST: Chest with clear breath sounds bilaterally. No wheezes, rales, or rhonchi. CARDIAC: Regular rate and rhythm. S1 and S2, without murmurs, gallops, or rubs. VASCULAR: No Edema. Peripheral pulses normal and equal in all extremities. ABDOMEN: Soft, non tender and non distended. No rebound or guarding, and no masses palpated. Bowel Sounds normal. MUSCULOSKELETAL: Good range of motion of all major joints. Extremities without clubbing, cyanosis or edema. NEUROLOGIC EXAM: Alert and oriented x 3 No focal sensory or strength deficits. Speech normal. Follows commands. PSYCHIATRIC: Mood normal. SKIN: No rash or lesions. - Constitutional Vitals: Temp Pulse Resp BP Pulse Ox 98.0 F 81 20 138/47 97 09/29/18 07:26 09/29/18 07:26 09/29/18 07:26 09/29/18 07:26 09/29/18 07:26 Plan Activity: advance as tolerated, fall precautions Diet: diabetic Special Instructions: record daily weights, record daily BP diary, record blood sugar diary Follow up with: REEMA BOUCHER MD [Primary Care Provider] - 3-5 Days Prescriptions: Insulin Glargine,Hum.rec.anlog [Lantus] 100 unit SQ QHS #20 vial
[2018-09-29] MEDS ORDERED: ATORVASTATIN CALCIUM 40 MG PO SCH (10:00)
[2018-09-29] MEDS ORDERED: NON-FORMULARY (Losartan 25 MG) PO SCH (10:00)
[2018-09-29] MEDS ORDERED: COZAAR PO SCH (10:00)
[2018-09-29] MEDS ORDERED: NORVASC PO SCH (10:00)
[2018-09-29] MEDS ORDERED: INDERAL LA PO SCH (10:00)
[2018-09-29] MEDS ORDERED: NON-FORMULARY (Hydrochlorothiazide 12.5 MG) PO SCH (10:00)
[2018-09-29] MEDS ORDERED: AMLODIPINE BESYLATE 2.5 MG PO SCH (10:00)
[2018-09-29] MEDS ORDERED: INDERAL 80 MG PO SCH (10:00)
[2018-09-29] MEDS ORDERED: HCTZ PO SCH (10:00)
--- NOTE | 2018-09-29 23:21 | Ultrasound Report ---
PROCEDURE: US RENAL BILAT TECHNIQUE: Real-time sonography in multiple planes of the kidneys, ureters and urinary bladder was p erformed with image documentation. HISTORY: Acute renal failure. COMPARISONS: None . FINDINGS: RIGHT kidney: Normal echotexture. No focal renal mass, calculus, or hydronephrosis. Length: 8.9 cm. There is a cyst in the upper pole measuring 18 mm. There is a cyst in the lower pole measuring 2 cm . LEFT kidney: Normal echotexture. No focal renal mass, calculus, or hydronephrosis. Length: 9.8 cm. Bladder: Normal. No distention or wall thickening. IMPRESSION: There are right kidney cysts. There is no mass or stone. There is no hydronephrosis. . This document is electronically signed by Onesimo Escobedo MD., Sep 29 2018 11:19:39 PM ET
== END 2018-09-29 13:00 | disposition home health service (06) | DRG 637 ==
LOC: ED 18:27 → CC1 21:32 → 2B-ACE 09-28 13:30
PROVIDERS: ADMIT Internal Medicine; ATTEND Internal Medicine
DX: E11.00 Type 2 diabetes mellitus with hyperosmolarity without nonketotic hyperglycemic-hyperosmolar coma (NKHHC) (principal); G93.41 Metabolic encephalopathy; N17.0 Acute kidney failure with tubular necrosis; E87.0 Hyperosmolality and hypernatremia; G89.29 Other chronic pain; E83.52 Hypercalcemia; E78.5 Hyperlipidemia, unspecified; N18.9 Chronic kidney disease, unspecified; I12.9 Hypertensive chronic kidney disease with stage 1 through stage 4 chronic kidney disease, or unspecified chronic kidney disease; E11.22 Type 2 diabetes mellitus with diabetic chronic kidney disease; Z86.718 Personal history of other venous thrombosis and embolism
CPT/HCPCS: 36415; 70450; 71045; 76770; 80048; 80053; 80076; 81001; 82010; 82570; 82805; 82962; 83036; 83735; 83970; 84100; 84300; 85025; 85027; 85610; 85730; 93005; 93010; 96360; G0378; A9270-GY; J1650; J1815; J7030